=== PATIENT | male | born 1970 | race Caucasian/White ===

== ENCOUNTER → 2016-08-09 | Outpatient (CLI) | payer BC, OTHER ==
--- NOTE | ~2016-08-09 | 24HR ---
[facility] [place] [employer] [place] [address] 24 HR ELECTROCARDIOGRAM REPORT Name: TATIANA VILLALOBOS Room #: REG CL [facility]#: [id number] Admission: 08/09/16 Attend Phys: Jason Elaine, Discharge: Date of : 66 Date of Service: 08/09/16 1137 Report #: [id number] THIS REPORT FOR: //name// [facility] Test Date: 2016-08-09 Test Time: 11:37:00 Pat Name: TATIANA VILLALOBOS Department: Room: Gender: [employer]: : [id number] Requested By: Jason Elaine Order Number: [id number] Reading MD: Jason Elaine Interpretive Statements 1. Study duration was 24hrs and technical quality good 2. predominant rhythm is sinus with an average heart rate of 89bpm, range 57-121bpm. Longest RR interval 1.2seconds 3. Rare, isolated atrial premature complexes. No SVT. No atrial fibrillation or atrial flutter. No heart block. 4. Rare, isolated premature ventricular complexes. No ventricular tachycardia. 5. No symptoms reported. Electronically Signed On 08-11-2016 9:23:40 CDT by Jason Elaine [email or web address] <ELECTRONICALLY SIGNED> By: Jason Elaine MD, [facility] 08/11/16 0923 1137 1137 Jason Elaine MD, FAC /EPI
== END ==
LOC: CV 07:14
DX: I25.10 Atherosclerotic heart disease of native coronary artery without angina pectoris (principal); R07.9 Chest pain, unspecified